=== PATIENT | male | born 1985 | race Two or more races ===

== ENCOUNTER 2019-02-10 23:19 | Emergency (ER) | payer BC, OTHER ==
[~2019-02-10] VITALS: Ht 188 cm; Wt 90.0 kg
[2019-02-11 01:01] VITALS: BP 155/71
== END 2019-02-11 02:08 | disposition home or self-care (01) ==
LOC: ED 23:59
DX: G43.009 Migraine without aura, not intractable, without status migrainosus (principal); H53.149 Visual discomfort, unspecified; Z86.718 Personal history of other venous thrombosis and embolism
CPT/HCPCS: 70496; 70498; 96374; 96375; 99284; J0780; J1200; Q9967